=== PATIENT | female | born 1980 | race Caucasian/White ===

== ENCOUNTER 2017-02-01 05:29 | Emergency (ER) | payer OTHER ==
[2017-02-01 05:30] VITALS: BP 143/84; PULSE 103; RESP 18; TEMP 98.3; O2SAT 96
--- NOTE | 2017-02-01 06:11 | PD ---
HPI Chief Complaint: Preschool Teacher Problem/Complaint Time Seen by Provider: 05:47 Travel History International Travel<30 days: No Contact w/Intl Traveler<30days: No Traveled to known affect area: No History of Present Illness HPI The patient is a 36 year old female who presents to the [facility] emergency department with a history of a month ago beginning to have aching sensations in bilateral lower extremities associated with fatigue. The patient reports that she's also over the last 2 months had a 25 pound weight gain. The patient reports that she has been diagnosed with thyroid nodule. She reports that she last had blood work done in September. She is followed by a primary care physician in [place]. She reports concern that this evening she began to have pain radiating down into the vaginal area. She reports that the symptoms were similar to when she had an ovarian dermoid cyst that had to be removed. She reports that this was in 2013 or 2014. She reports that there is a possibility that she is . She reports that she is sexually active with her . She reports that they do not use any kind for prevention other than withdrawal. The patient denies having any vaginal discharge. She reports that she has had a darkening of her urine. She denies having any dysuria, urinary frequency, or urinary urgency. She does however report a stronger odor to her urine. The patient denies any recent fevers, cough , congestion, chest pain, shortness of breath, vomiting, diarrhea, or neurologic symptoms. LMP: 2 weeks ago. [facility] Past Medical History Narrative Medical The patient's past medical history is significant for a thyroid nodule that is in the process of being worked up, history of a vitamin D deficiency. The patient has a family history of thyroid cancer in her mother. ?: Not LMP: 2 weeks ago Past Surgical History Narrative Surgical The patient's past surgical history is significant for left salpingo- oophorectomy related to a dermoid cyst, 2 prior C-sections. Social History Alcohol Use: No Tobacco Use: No Substance Use: No Allergies-Medications (Allergen,Severity, Reaction): Coded Allergies: No Known Allergies (Unverified , 02/01/17) Reported Meds & Prescriptions Reported Meds & Active Scripts Active No Active Prescriptions or Reported Medications Review of Systems Except as stated in HPI: all other systems reviewed are Neg General / Constitutional: No: Fever Eyes: No: Visual changes HENT: Positive: Headaches, Sore Throat, Neck Pain, No: Rhinorrhea, Congestion , Neck Stiffness Cardiovascular: No: Chest Pain or Discomfort, Dyspnea on exertion Respiratory: No: Cough, Shortness of Breath Gastrointestinal: No: Nausea, Vomiting, Diarrhea, Abdominal Pain, Changes in Bowel Habits, Indigestion, Loss of Appetite Genitourinary: No: Dysuria Musculoskeletal: No: Pain Skin: No Rash Neurologic: Positive: Weakness (generalized weakness, fatigue), No: Focal Abnormalities, Change in Mentation, Slurred Speech, Sensory Disturbance Psychiatric: No: Depression Endocrine: No: Polydipsia Hematologic/Lymphatic: No: Easy Bruising Physical Exam Narrative General: The patient is a well-developed well-nourished female in no acute distress Head and Neck exam: Head is normocephalic atraumatic. Eyes: EOMI, pupils are equal round and reactive to light. Nose: Midline septum with pink mucous membranes Mouth: Dentition unremarkable. Moist mucus membranes. Posterior oropharynx is not erythematous. No tonsillar hypertrophy. Uvula midline. Airway patent. Neck: No palpable lymphadenopathy. No nuchal rigidity. No thyromegaly palpated. Cardiovascular: Regular rate and rhythm without murmurs, gallops, or rubs. Lungs: Clear to auscultation bilaterally. No wheezes, rhonchi, or rales. Abdomen: Soft, without tenderness to palpation in all 4 quadrants of the abdomen. No guarding, rebound, or rigidity. Normal bowel sounds are audible. No tenderness on palpation of McBurney's point. Negative Nisula sign. Extremities: No clubbing or cyanosis. The patient has trace pedal edema bilateral lower extremities.. 2+ pulses in all 4 extremities. No calf tenderness on palpation. Back: No costovertebral angle tenderness to palpation. Neurologic Exam: Grossly nonfocal. Skin Exam: No rash noted. Intact skin that is warm and dry. Gynecologic exam: The patient was placed in the dorsal lithotomy position. Her external genitalia were examined. She had no evidence of rash or lesions. The speculum was placed into her vagina and the cervix was identified. She had a physiologic appearing clear white discharge. No cervical friability. On Bimanual exam: she has no cervical motion tenderness. She did however have bladder tenderness on bimanual examination. No adnexal tenderness or prominence noted on palpation. No uterine tenderness or enlargement noted on palpation. Data Data Last Documented VS Vital Signs Date Time Temp Pulse Resp B/P Pulse Ox O2 Delivery O2 Flow Rate FiO2 02/01/17 05:30 98.3 103 18 143/84 96 Room Air Orders Gc And Chlamydia Pcr (02/01/17 05:48) Wet Prep Profile (02/01/17 05:48) Urinalysis - C+S If Indicated (02/01/17 05:48) Ed Urine Pregnancytest Poc (02/01/17 05:48) Complete Blood Count With Diff (02/01/17 06:01) Comprehensive Metabolic Panel (02/01/17 06:01) Lipase (02/01/17 06:01) Magnesium (Mg) (02/01/17 06:01) Thyroid Stimulating Hormone (02/01/17 06:01) Iv Access Insert/Monitor (02/01/17 06:01) Ecg Monitoring (02/01/17 06:01) Oximetry (02/01/17 06:01) Sodium Chlorid 0.9% 500 Ml Inj (Ns 500 M (02/01/17 06:30) Ketorolac Inj (Toradol Inj) (02/01/17 06:30) Labs Laboratory Tests Test 02/01/17 06:10 White Blood Count 7.0 TH/MM3 Red Blood Count 4.29 MIL/MM3 Hemoglobin 12.3 GM/DL Hematocrit 36.3 % Mean Corpuscular Volume 84.7 FL Mean Corpuscular Hemoglobin 28.6 PG Mean Corpuscular Hemoglobin 33.8 % Concent Red Cell Distribution Width 13.3 % Platelet Count 238 TH/MM3 Mean Platelet Volume 8.0 FL Neutrophils (%) (Auto) 68.9 % Lymphocytes (%) (Auto) 20.1 % Monocytes (%) (Auto) 7.9 % Eosinophils (%) (Auto) 2.7 % Basophils (%) (Auto) 0.4 % Neutrophils # (Auto) 4.8 TH/MM3 Lymphocytes # (Auto) 1.4 TH/MM3 Monocytes # (Auto) 0.6 TH/MM3 Eosinophils # (Auto) 0.2 TH/MM3 Basophils # (Auto) 0.0 TH/MM3 CBC Comment DIFF FINAL Differential Comment Urine Color YELLOW Urine Turbidity HAZY Urine pH 5.0 Urine Specific [place] 1.034 Urine Protein 100 mg/dL Urine Glucose (UA) NEG mg/dL Urine Ketones NEG mg/dL Urine Occult Blood NEG Urine Nitrite NEG Urine Bilirubin NEG Urine Urobilinogen LESS THAN 2.0 MG/DL Urine Leukocyte Esterase NEG Urine RBC 2 /hpf Urine WBC 3 /hpf Urine Squamous Epithelial 4 /hpf Cells Urine Calcium Oxalate Crystals MOD /hpf Urine Bacteria RARE /hpf Urine Mucus FEW /lpf Microscopic Urinalysis Comment CULT NOT INDICATED MDM Medical Decision Making Medical Screen Exam Complete: Yes Emergency Medical Condition: Yes Medical Record Reviewed: Yes Differential Diagnosis , versus hypothyroid disorder, versus hyperthyroid disorder, versus electrolyte abnormality, versus urinary tract infection, versus pyelonephritis, versus ureteral calculi Narrative Course During the course of the patients emergency department visit, the patients history, examination, and differential diagnosis were reviewed with the patient. The patient had IV access obtained and blood work sent for analysis. The patient was placed on a phototypesetting equipment monitor with oximetry and blood pressure monitoring. The patient was placed on a phototypesetting equipment monitor with oximetry and blood pressure monitoring. A CT scan of the abdomen and pelvis has been ordered. The patient was initially provided normal saline a 500 mL bolus 1, Toradol 15 mg IV. The patients laboratory studies were reviewed and remarkable for a bedside test negative. CBC is within normal limits, urinalysis shows 100 protein, moderate calcium oxalate crystals, rare bacteria, culture not indicated , given the patient reporting that her urine has been darker than usual and having the pain radiating into her vagina, the patient will have a CT scan without contrast of the abdomen and pelvis to evaluate for possible kidney stone. The patient's case will be checked out to the oncoming emergency physician to disposition based on the conclusion of the patient's workup. I anticipate that the patient will be able to be discharged home. Diagnosis Primary Impression: Fatigue Qualified Code: R53.83 - Fatigue, unspecified type Additional Impressions: Weight gain Vaginal pain Scripts No Active Prescriptions or Reported Meds Rebeca Guzman MD February 01, 2017 06:11
[2017-02-01 06:27] LABS: AUTOMATED NEUTROPHIL # 4.8 TH/MM3 (1.8-7.7); BASOPHIL % 0.4 % (0.0-2.0); EOSINOPHIL # 0.2 TH/MM3 (0-0.4); EOSINOPHIL % 2.7 % (0.0-4.0); HEMATOCRIT 36.3 % (35.0-46.0); HEMO FLAGS DIFF FINAL; LYMPH % 20.1 % (9.0-44.0); LYMPHOCYTE # 1.4 TH/MM3 (1.0-4.8); MEAN CELL VOLUME 84.7 FL (80.0-100.0); MEAN CORPUSCULAR HEMOGLOBIN 28.6 PG (27.0-34.0); MEAN CORPUSCULAR HGB CONC 33.8 % (32.0-36.0); MONO % 7.9 % (0.0-8.0); NEUT % 68.9 % (16.0-70.0); PLATELET COUNT 238 TH/MM3 (150-450); RED BLOOD COUNT 4.29 MIL/MM3 (4.00-5.30); RED CELL DISTRIBUTION WIDTH 13.3 % (11.6-17.2)
[2017-02-01] MEDS ORDERED: KETOROLAC TROMETHAMINE 30 MG/ML (IVP) VIAL IV PUSH ONE (06:30)
[2017-02-01] MEDS ORDERED: SODIUM CHLORID 0.9% 500 ML INJ 500 ML IV ONE (06:30)
[2017-02-01 06:34] LABS: BACTERIA, URINE RARE /hpf; BLOOD, URINE NEG (NEG); CALCIUM OXALATE CRYSTALS,URINE MOD /hpf; COMMENT (UR) CULT NOT INDICATED; CULTURE IF INDICATED CULT NOT INDICATED; GLUCOSE,URINE NEG (NEG); KETONE, URINE NEG (NEG); MUCUS URINE FEW /lpf (OCC); NITRITE,URINE NEG (NEG); SQUAMOUS EPITHELIAL CELL URINE 4 /hpf (0-5); URINE COLOR YELLOW (YELLW/STRAW)
[2017-02-01 07:00] LABS: ALT (GPT) 22 U/L (10-53); ANION GAP 7 MEQ/L (5-15); AST (GOT) 14 U/L (15-37); BLOOD UREA NITROGEN 14 MG/DL (7-18); CHLORIDE 107 MEQ/L (98-107); GLOMERULAR FILTRATION RATE 82 ML/MIN (>89); MAGNESIUM 2.2 MG/DL (1.5-2.5); POTASSIUM 3.7 MEQ/L (3.5-5.1); SODIUM (NA) 141 MEQ/L (136-145)
--- NOTE | 2017-02-01 07:07 | PD ---
Physical Exam Date Seen by Provider: February 01, 2017 Time Seen by Provider: 07:05 Narrative The patient is a 36-year-old female was initially evaluated by the previous physician, Dr. Guzman. Please refer to the initial history, physical, diagnostic evaluation, and treatment modality plan. The patient was signed out at [address] of the abdomen and pelvis pending. Data Data Last Documented VS Vital Signs Date Time Temp Pulse Resp B/P Pulse Ox O2 Delivery O2 Flow Rate FiO2 02/01/17 07:52 16 02/01/17 05:30 98.3 103 143/84 96 Room Air Orders Gc And Chlamydia Pcr (02/01/17 05:48) Wet Prep Profile (02/01/17 05:48) Urinalysis - C+S If Indicated (02/01/17 05:48) Ed Urine Pregnancytest Poc (02/01/17 05:48) Complete Blood Count With Diff (02/01/17 06:01) Comprehensive Metabolic Panel (02/01/17 06:01) Lipase (02/01/17 06:01) Magnesium (Mg) (02/01/17 06:01) Thyroid Stimulating Hormone (02/01/17 06:01) Iv Access Insert/Monitor (02/01/17 06:01) Ecg Monitoring (02/01/17 06:01) Oximetry (02/01/17 06:01) Sodium Chlorid 0.9% 500 Ml Inj (Ns 500 M (02/01/17 06:30) Ketorolac Inj (Toradol Inj) (02/01/17 06:30) Ct Abd/Pel W/O Iv Contrast (02/01/17 06:53) Labs Laboratory Tests Test 02/01/17 02/01/17 06:10 06:20 White Blood Count 7.0 TH/MM3 Red Blood Count 4.29 MIL/MM3 Hemoglobin 12.3 GM/DL Hematocrit 36.3 % Mean Corpuscular Volume 84.7 FL Mean Corpuscular Hemoglobin 28.6 PG Mean Corpuscular Hemoglobin 33.8 % Concent Red Cell Distribution Width 13.3 % Platelet Count 238 TH/MM3 Mean Platelet Volume 8.0 FL Neutrophils (%) (Auto) 68.9 % Lymphocytes (%) (Auto) 20.1 % Monocytes (%) (Auto) 7.9 % Eosinophils (%) (Auto) 2.7 % Basophils (%) (Auto) 0.4 % Neutrophils # (Auto) 4.8 TH/MM3 Lymphocytes # (Auto) 1.4 TH/MM3 Monocytes # (Auto) 0.6 TH/MM3 Eosinophils # (Auto) 0.2 TH/MM3 Basophils # (Auto) 0.0 TH/MM3 CBC Comment DIFF FINAL Differential Comment Urine Color YELLOW Urine Turbidity HAZY Urine pH 5.0 Urine Specific [place] 1.034 Urine Protein 100 mg/dL Urine Glucose (UA) NEG mg/dL Urine Ketones NEG mg/dL Urine Occult Blood NEG Urine Nitrite NEG Urine Bilirubin NEG Urine Urobilinogen LESS THAN 2.0 MG/DL Urine Leukocyte Esterase NEG Urine RBC 2 /hpf Urine WBC 3 /hpf Urine Squamous Epithelial 4 /hpf Cells Urine Calcium Oxalate Crystals MOD /hpf Urine Bacteria RARE /hpf Urine Mucus FEW /lpf Microscopic Urinalysis Comment CULT NOT INDICATED Sodium Level 141 MEQ/L Potassium Level 3.7 MEQ/L Chloride Level 107 MEQ/L Carbon Dioxide Level 27.0 MEQ/L Anion Gap 7 MEQ/L Blood Urea Nitrogen 14 MG/DL Creatinine 0.79 MG/DL Estimat Glomerular Filtration 82 ML/MIN Rate Random Glucose 103 MG/DL Calcium Level 9.0 MG/DL Magnesium Level 2.2 MG/DL Total Bilirubin 0.2 MG/DL Aspartate Amino Transf 14 U/L (AST/SGOT) Alanine Aminotransferase 22 U/L (ALT/SGPT) Alkaline Phosphatase 82 U/L Total Protein 7.0 GM/DL Albumin 4.0 GM/DL Lipase 243 U/L Thyroid Stimulating Hormone 3.720 uIU/ML 3rd Gen Clue Cells (Wet Prep) NONE SEEN Vaginal Trichomonas (Wet Prep) NONE SEEN Vaginal Yeast (Wet Prep) NONE SEEN [facility] Medical Record Reviewed: Yes Supervised Visit with IRWIN: No Interpretation(s) Laboratory Tests Test 02/01/17 02/01/17 06:10 06:20 White Blood Count 7.0 TH/MM3 Red Blood Count 4.29 MIL/MM3 Hemoglobin 12.3 GM/DL Hematocrit 36.3 % Mean Corpuscular Volume 84.7 FL Mean Corpuscular Hemoglobin 28.6 PG Mean Corpuscular Hemoglobin 33.8 % Concent Red Cell Distribution Width 13.3 % Platelet Count 238 TH/MM3 Mean Platelet Volume 8.0 FL Neutrophils (%) (Auto) 68.9 % Lymphocytes (%) (Auto) 20.1 % Monocytes (%) (Auto) 7.9 % Eosinophils (%) (Auto) 2.7 % Basophils (%) (Auto) 0.4 % Neutrophils # (Auto) 4.8 TH/MM3 Lymphocytes # (Auto) 1.4 TH/MM3 Monocytes # (Auto) 0.6 TH/MM3 Eosinophils # (Auto) 0.2 TH/MM3 Basophils # (Auto) 0.0 TH/MM3 CBC Comment DIFF FINAL Differential Comment Urine Color YELLOW Urine Turbidity HAZY Urine pH 5.0 Urine Specific [place] 1.034 Urine Protein 100 mg/dL Urine Glucose (UA) NEG mg/dL Urine Ketones NEG mg/dL Urine Occult Blood NEG Urine Nitrite NEG Urine Bilirubin NEG Urine Urobilinogen LESS THAN 2.0 MG/DL Urine Leukocyte Esterase NEG Urine RBC 2 /hpf Urine WBC 3 /hpf Urine Squamous Epithelial 4 /hpf Cells Urine Calcium Oxalate Crystals MOD /hpf Urine Bacteria RARE /hpf Urine Mucus FEW /lpf Microscopic Urinalysis Comment CULT NOT INDICATED Sodium Level 141 MEQ/L Potassium Level 3.7 MEQ/L Chloride Level 107 MEQ/L Carbon Dioxide Level 27.0 MEQ/L Anion Gap 7 MEQ/L Blood Urea Nitrogen 14 MG/DL Creatinine 0.79 MG/DL Estimat Glomerular Filtration 82 ML/MIN Rate Random Glucose 103 MG/DL Calcium Level 9.0 MG/DL Magnesium Level 2.2 MG/DL Total Bilirubin 0.2 MG/DL Aspartate Amino Transf 14 U/L (AST/SGOT) Alanine Aminotransferase 22 U/L (ALT/SGPT) Alkaline Phosphatase 82 U/L Total Protein 7.0 GM/DL Albumin 4.0 GM/DL Lipase 243 U/L Thyroid Stimulating Hormone 3.720 uIU/ML 3rd Gen Clue Cells (Wet Prep) NONE SEEN Vaginal Trichomonas (Wet Prep) NONE SEEN Vaginal Yeast (Wet Prep) NONE SEEN CT of the abdomen and pelvis reveals no renal calculi or hydronephrosis. Multiple calcified gallstones, no inflammatory changes. Differential Diagnosis Differential diagnosis includes nephrolithiasis, pyelonephritis, UTI, cervicitis , PID, vaginitis, abdominal pain NOS. Narrative Course The patient is a 36-year-old female who was initially evaluated by the previous physician, Dr. Guzman. Please refer to the initial history, physical, diagnostic evaluation, and treatment modality plan. The patient was signed out at [address] of the abdomen and pelvis pending. The patient's labs are unremarkable. CBC, CMP, and TSH are within normal limits. Wet prep is negative. UA did have calcium oxalate crystals. CT the abdomen and pelvis reveals multiple calcified gallstones but no inflammatory changes. No renal calculi or hydronephrosis. The patient will be provided a copy of her labs and CT report at discharge, she is stable for outpatient follow-up. Diagnosis Primary Impression: Fatigue Qualified Code: R53.83 - Fatigue, unspecified type Additional Impressions: Vaginal pain Weight gain Patient Instructions: General Instructions Additional Instruction: Please provide a patient a copy of her CT results and lab results at discharge. Follow-up with your primary physician. Return if symptoms worsen or progress. Med/Other Pt SpecificInfo: No Change to Meds Scripts No Active Prescriptions or Reported Meds Disposition: 01 DISCHARGE HOME Condition: Stable Juan Ramon Sood MD February 01, 2017 07:07
[2017-02-01 07:10] LABS: ALKALINE PHOSPHATASE 82 U/L (45-117); TOTAL BILIRUBIN ADULT 0.2 MG/DL (0.2-1.0)
--- NOTE | 2017-02-01 07:47 | RADRPT ---
EXAM DATE/TIME: 02/01/2017 07:17 [place] COMPARISON: No previous studies available for comparison. INDICATIONS : Left flank pain, dark urine and pelvic pain. Evaluate for renal stone. ORAL CONTRAST: No oral contrast ingested. RADIATION DOSE: 8.50 CTDIvol (mGy) MEDICAL HISTORY : Hypoglycemia SURGICAL HISTORY : Salpingectomy ENCOUNTER: Initial ACUITY: 1 day PAIN SCALE: 5/10 LOCATION: Left flank TECHNIQUE: Volumetric scanning of the abdomen and pelvis was performed. Using automated exposure control and ad justment of the mA and/or kV according to patient size, radiation dose was kept as low as reasonably achievable to obtain optimal diagnostic quality images. FINDINGS: LOWER LUNGS: The visualized lower lungs are clear. LIVER: Homogeneous density without lesion. There is no dilation of the biliary tree. Multiple calcified gal lstones. No inflammatory changes. SPLEEN: Normal size without lesion. PANCREAS: Within normal limits. KIDNEYS: Normal in size and shape. There is no mass, stone, or hydronephrosis. No ureteral calculi. ADRENAL GLANDS: Within normal limits. VASCULAR: There is no aortic aneurysm. BOWEL/MESENTERY: The stomach, small bowel, and colon demonstrate no acute abnormality. There is no free intraperitone al air or fluid. Normal appendix. ABDOMINAL WALL: Within normal limits. RETROPERITONEUM: There is no lymphadenopathy. BLADDER: No wall thickening or mass. REPRODUCTIVE: Within normal limits. INGUINAL: There is no lymphadenopathy or hernia. MUSCULOSKELETAL: Within normal limits for patient age. CONCLUSION: 1. No renal calculi or hydronephrosis. 2. Gallbladder packed with gallstones. Juan Martinez MD on February 01, 2017 at 7:43 Board Certified Radiologist. This report was verified electronically.
[2017-02-01 07:52] VITALS: RESP 16
[2017-02-01 08:18] VITALS: BP 142/67
[2017-02-01 12:18] LABS: CHLAMYDIA PCR NOT DETECTED (NOT DETECT); NEISSERIA PCR NOT DETECTED (NOT DETECT)
== END 2017-02-01 08:19 | disposition home or self-care (01) ==
LOC: NEPE 05:29
DX: R10.2 Pelvic and perineal pain (principal); R53.83 Other fatigue; R63.5 Abnormal weight gain; E55.9 Vitamin D deficiency, unspecified
CPT/HCPCS: 74176; 80053; 81001; 83690; 83735; 84443; 84703; 85025; 87210; 87491; 87591; 96361; 96374; 99284; J1885; J7040

== ENCOUNTER 2017-03-08 18:40 | Emergency (ER) | payer OTHER ==
[~2017-03-08] VITALS: Ht 165.1 cm; Wt 100.0 kg
[2017-03-08 18:42] VITALS: BP 119/79; PULSE 82; RESP 20; TEMP 97.5; O2SAT 97
--- NOTE | 2017-03-08 19:45 | PD ---
Physical Exam Date Seen by Provider: Mar 08, 2017 Time Seen by Provider: 19:44 Narrative 36 yo female here for evaluation of lower extremity pain. Legs are burning and weak. pain is 7/10. Feels nauseous. Vomiting. Increasing pain in abdomen. Going to have gallbladder surgery next week. Nothing making it better. Vitals sign stable. Patient awaiting bed placement. Data Data Last Documented VS Vital Signs Date Time Temp Pulse Resp B/P Pulse Ox O2 Delivery O2 Flow Rate FiO2 03/08/17 18:42 97.5 82 20 119/79 97 Room Air [facility] Medical Record Reviewed: Yes Supervised Visit with IRWIN: No Scripts No Active Prescriptions or Reported Meds Gurpreet Kevin Mar 08, 2017 19:45
[2017-03-08 21:01] LABS: BLOOD, URINE NEG (NEG); COMMENT (UR) CULT NOT INDICATED; CULTURE IF INDICATED CULT NOT INDICATED; GLUCOSE,URINE NEG (NEG); KETONE, URINE NEG (NEG); NITRITE,URINE NEG (NEG); PH, URINE 6.5 (5.0-8.5); SQUAMOUS EPITHELIAL CELL URINE 1 /hpf (0-5); URINE COLOR YELLOW (YELLW/STRAW)
[2017-03-08 21:11] VITALS: BP 127/82; PULSE 80; RESP 16; O2SAT 98
[2017-03-08] MEDS ORDERED: SODIUM CHLOR 0.9% 1000 ML INJ 1,000 ML IV SCH (21:19)
[2017-03-08] MEDS ORDERED: ONDANSETRON HCL 4 MG/2 ML VIAL IVP ONE (21:30)
[2017-03-08] MEDS ORDERED: SODIUM CHLORIDE 0.9% FLUSH 10 ML FLUSH IV FLUSH PRN (21:30)
[2017-03-08] MEDS ORDERED: KETOROLAC TROMETHAMINE 30 MG/ML (IVP) VIAL IVP ONE (21:30)
[2017-03-08] MEDS ORDERED: MORPHINE SULFATE 8 MG/ML INJ IV PUSH ONE (21:30)
--- NOTE | 2017-03-08 21:36 | PD ---
HPI Chief Complaint: Abdominal Pain Time Seen by Provider: 21:19 Travel History International Travel<30 days: No Contact w/Intl Traveler<30days: No Traveled to known affect area: No History of Present Illness HPI 36-year-old female complains of left lower quadrant pain, right abdomen pain, foul-smelling urine, and chronic vaginal discharge. Last menstruation 3 days prior. She's had no fever or vomiting. She states it feels like there is something in her bones. She describes headaches. She describes a generalized state of weakness. She reports she's had the pain in the region of the left lower quadrant for over a month. A CT scan done about 2 weeks ago was normal. She reports a history of left salpingo-oophorectomy due to infection. She has been following with outside providers. [facility] Past Medical History Medical History: Denies Significant Hx Diminished Hearing: No Tetanus Vaccination: Unknown Influenza Vaccination: Yes ?: Not LMP: 03/05/17 Past Surgical History Surgical History: No Previous Surgery Section: Yes Hysterectomy: Yes (partial) Social History Alcohol Use: No Tobacco Use: No Substance Use: No Allergies-Medications (Allergen,Severity, Reaction): Coded Allergies: No Known Allergies (Unverified , 03/08/17) Reported Meds & Prescriptions Reported Meds & Active Scripts Active No Active Prescriptions or Reported Medications Review of Systems Except as stated in HPI: all other systems reviewed are Neg Physical Exam Narrative GENERAL: 36-year-old female pleasant well-nourished well-developed no acute distress SKIN: Focused skin assessment warm/dry. HEAD: Atraumatic. Normocephalic. EYES: Pupils equal and round. No scleral icterus. No injection or drainage. ENT: No nasal bleeding or discharge. Mucous membranes pink and moist. NECK: Trachea midline. No JVD. CARDIOVASCULAR: Regular rate and rhythm. No murmur appreciated. RESPIRATORY: No accessory muscle use. Clear to auscultation. Breath sounds equal bilaterally. GASTROINTESTINAL: Abdomen soft, non-tender, nondistended. Hepatic and splenic margins not palpable. MUSCULOSKELETAL: No obvious deformities. No clubbing. No cyanosis. No edema. NEUROLOGICAL: Awake and alert. No obvious cranial nerve deficits. Motor grossly within normal limits. Normal speech. PSYCHIATRIC: Appropriate mood and affect; insight and judgment normal. Data Data Last Documented VS Vital Signs Date Time Temp Pulse Resp B/P Pulse Ox O2 Delivery O2 Flow Rate FiO2 03/09/17 00:41 99 03/09/17 00:41 64 20 112/68 03/08/17 21:11 Room Air 03/08/17 18:42 97.5 Vital signs reviewed Orders Urinalysis - C+S If Indicated (03/08/17 19:56) Beta Hcg (Quant/Titer) (03/08/17 21:19) Complete Blood Count With Diff (03/08/17 21:19) Comprehensive Metabolic Panel (03/08/17 21:19) Lipase (03/08/17 21:19) Prothrombin Time / Inr (Pt) (03/08/17 21:19) Act Partial Throm Time (Ptt) (03/08/17 21:19) Iv Access Insert/Monitor (03/08/17 21:19) Ecg Monitoring (03/08/17 21:19) Oximetry (03/08/17 21:19) Us Pelvis Comp Refiner Operator/Non-Preg (03/08/17 ) Ondansetron Inj (Zofran Inj) (03/08/17 21:30) Sodium Chlor 0.9% 1000 Ml Inj (Ns 1000 M (03/08/17 21:19) Sodium Chloride 0.9% Flush (Ns Flush) (03/08/17 21:30) Ketorolac Inj (Toradol Inj) (03/08/17 21:30) Morphine Inj (Morphine Inj) (03/08/17 21:30) Labs Laboratory Tests Test 03/08/17 03/08/17 20:13 21:20 Urine Color YELLOW Urine Turbidity CLEAR Urine pH 6.5 Urine Specific [place] 1.019 Urine Protein 30 mg/dL Urine Glucose (UA) NEG mg/dL Urine Ketones NEG mg/dL Urine Occult Blood NEG Urine Nitrite NEG Urine Bilirubin NEG Urine Urobilinogen LESS THAN 2.0 MG/DL Urine Leukocyte Esterase NEG Urine RBC LESS THAN 1 /hpf Urine WBC 1 /hpf Urine Squamous Epithelial 1 /hpf Cells Microscopic Urinalysis Comment CULT NOT INDICATED White Blood Count 5.8 TH/MM3 Red Blood Count 4.65 MIL/MM3 Hemoglobin 13.5 GM/DL Hematocrit 39.9 % Mean Corpuscular Volume 85.7 FL Mean Corpuscular Hemoglobin 28.9 PG Mean Corpuscular Hemoglobin 33.7 % Concent Red Cell Distribution Width 13.2 % Platelet Count 252 TH/MM3 Mean Platelet Volume 8.4 FL Neutrophils (%) (Auto) 56.3 % Lymphocytes (%) (Auto) 30.3 % Monocytes (%) (Auto) 8.7 % Eosinophils (%) (Auto) 4.1 % Basophils (%) (Auto) 0.6 % Neutrophils # (Auto) 3.3 TH/MM3 Lymphocytes # (Auto) 1.8 TH/MM3 Monocytes # (Auto) 0.5 TH/MM3 Eosinophils # (Auto) 0.2 TH/MM3 Basophils # (Auto) 0.0 TH/MM3 CBC Comment DIFF FINAL Differential Comment Prothrombin Time 10.3 SEC Prothromb Time International 0.9 RATIO Ratio Activated Partial 27.1 SEC Thromboplast Time Sodium Level 140 MEQ/L Potassium Level 4.2 MEQ/L Chloride Level 104 MEQ/L Carbon Dioxide Level 26.4 MEQ/L Anion Gap 10 MEQ/L Blood Urea Nitrogen 19 MG/DL Creatinine 0.99 MG/DL Estimat Glomerular Filtration 63 ML/MIN Rate Random Glucose 103 MG/DL Calcium Level 8.6 MG/DL Total Bilirubin 0.2 MG/DL Aspartate Amino Transf 14 U/L (AST/SGOT) Alanine Aminotransferase 28 U/L (ALT/SGPT) Alkaline Phosphatase 85 U/L Total Protein 7.2 GM/DL Albumin 3.9 GM/DL Lipase 187 U/L Human Chorionic Gonadotropin, LESS THAN 1 Quant MIU/ML [facility] Medical Decision Making Medical Screen Exam Complete: Yes Emergency Medical Condition: Yes Medical Record Reviewed: Yes Differential Diagnosis Constipation, Gastritis, Acute Cholecystitis, Biliary Colic, Pancreatitis, AVITIA , Hepatitis, Bowel Obstruction, Cystitis, Mesenteric Ischemia, AAA, Appendicitis , Renal Stone/Hydronephrosis, GERD, perforated viscous Narrative Course CBC & BMP Diagram 03/08/17 21:20 LFts normal lipase normal UA no UTI Last 24 hours Impressions Pelvis Ultrasound 03/08/17 0000 Signed Impressions: Service Date/Time: Wednesday, March 08, 2017 22:11 - CONCLUSION: Right ovarian follicle. No concerning abnormality. Previous left salpingo-oophorectomy without evidence of recurrent adnexal mass.. Sloan Brooks MD Pt is to follow up with PMD for further work up as needed. Diagnosis Primary Impression: Fatigue Qualified Code: R53.83 - Fatigue, unspecified type Additional Impression: Pelvic pain Referrals: Primary Care Physician 2 days Additional Instructions: You have a choice when it comes to health care, and we are glad that you chose [facility].. Hopefully, we have met your expectations on today's visit. You are welcome to return to [facility]. at any time, as we are committed to meeting the health care needs of our community. Med/Other Pt SpecificInfo: No Change to Meds Scripts No Active Prescriptions or Reported Meds Disposition: 01 DISCHARGE HOME Condition: Cesario Jama MD Mar 08, 2017 21:36
[2017-03-08 21:42] LABS: AUTOMATED NEUTROPHIL # 3.3 TH/MM3 (1.8-7.7); BASOPHIL % 0.6 % (0.0-2.0); EOSINOPHIL # 0.2 TH/MM3 (0-0.4); EOSINOPHIL % 4.1 % (0.0-4.0); HEMATOCRIT 39.9 % (35.0-46.0); HEMO FLAGS DIFF FINAL; LYMPH % 30.3 % (9.0-44.0); LYMPHOCYTE # 1.8 TH/MM3 (1.0-4.8); MEAN CELL VOLUME 85.7 FL (80.0-100.0); MEAN CORPUSCULAR HEMOGLOBIN 28.9 PG (27.0-34.0); MEAN CORPUSCULAR HGB CONC 33.7 % (32.0-36.0); MONO % 8.7 % (0.0-8.0); NEUT % 56.3 % (16.0-70.0); PLATELET COUNT 252 TH/MM3 (150-450); RED BLOOD COUNT 4.65 MIL/MM3 (4.00-5.30); RED CELL DISTRIBUTION WIDTH 13.2 % (11.6-17.2); WHITE BLOOD COUNT 5.8 TH/MM3 (4.0-11.0)
[2017-03-08 21:57] LABS: APTT (PATIENT) 27.1 SEC (24.3-30.1); INTERNATIONAL NORMALIZED RATIO 0.9 RATIO; PROTHROMBIN TIME - PATIENT 10.3 SEC (9.8-11.6)
[2017-03-08 21:58] LABS: ANION GAP 10 MEQ/L (5-15); AST (GOT) 14 U/L (15-37); BICARBONATE 26.4 MEQ/L (21.0-32.0); BLOOD UREA NITROGEN 19 MG/DL (7-18); CHLORIDE 104 MEQ/L (98-107); GLOMERULAR FILTRATION RATE 63 ML/MIN (>89); POTASSIUM 4.2 MEQ/L (3.5-5.1); SODIUM (NA) 140 MEQ/L (136-145)
[2017-03-08 21:59] LABS: ALT (GPT) 28 U/L (10-53)
[2017-03-08 22:03] LABS: ALKALINE PHOSPHATASE 85 U/L (45-117); BETA HCG QUANT LESS THAN 1 MIU/ML (0-5); TOTAL BILIRUBIN ADULT 0.2 MG/DL (0.2-1.0)
--- NOTE | 2017-03-08 22:47 | RADRPT ---
EXAM DATE/TIME: 03/08/2017 22:11 [place] COMPARISON: No previous studies available for comparison. EXTERNAL COMPARISON : [facility], US PELVIS-COMPLETE, October 06, 2016 INDICATIONS : Pelvic pain. MEDICAL HISTORY : . Left ovarian teratoma. SURGICAL HISTORY : section. Left oophorectomy and salpingectomy. ENCOUNTER: Initial ACUITY: 1 month PAIN SCORE: 7/10 LOCATION: Bilateral pelvis MEASUREMENTS: UTERUS: 8.6 x 6.3 x 4.3 cm ENDOMETRIAL STRIPE: 3 mm RIGHT OVARY: 3.7 x 2.7 x 2.9 cm LEFT OVARY: Surgically absent FINDINGS: UTERUS: The myometrium has homogeneous echotexture without mass. RIGHT OVARY: 13 mm cyst. Normal blood flow. LEFT OVARY: Previous left salpingo-oophorectomy. No mass lesion. MISCELLANEOUS: No free fluid. CONCLUSION: Right ovarian follicle. No concerning abnormality. Previous left salpingo-oophorectomy without eviden ce of recurrent adnexal mass.. Sloan Brooks MD on March 08, 2017 at 22:43 Board Certified Radiologist. This report was verified electronically.
[2017-03-09 00:41] VITALS: BP 112/68; PULSE 64; RESP 20; O2SAT 98; O2SAT 99
== END 2017-03-09 01:55 | disposition home or self-care (01) ==
LOC: NEPE 18:40
DX: R53.83 Other fatigue (principal); R10.2 Pelvic and perineal pain
CPT/HCPCS: 76856; 80053; 81001; 83690; 84702; 85025; 85610; 85730; 96374; 96375; 99285; J1885; J2270; J2405; J7030